=== PATIENT | male | born 1985 | race Caucasian/White ===

== ENCOUNTER 2018-08-18 17:05 | Emergency (ER) | payer OTHER ==
[2018-08-18 17:14] VITALS: BP 144/77; PULSE 61; TEMP 98.1; BMI 37.3
[2018-08-18] MEDS ORDERED: IBUPROFEN 400 MG TABLET (FP) PO ONE ×2 (17:28→17:33)
--- NOTE | 2018-08-18 17:39 | PDOC ---
History of Present Illness - General Chief Complaint: Sore Throat Stated Complaint: SORE THROAT/FEVER Time Seen by Provider: 08/18/18 17:17 History Source: Patient Exam Limitations: No Limitations - History of Present Illness Associated Symptoms: reports: cough. denies: chest pain (sorethroat X 2wks, also cough), fever/chills, headaches, loss of appetite, nausea/vomiting, shortness of breath Past History - Travel Traveled outside of the country in the last 30 days: No Close contact w/someone who was outside of country & ill: No - Past Medical History Allergies/Adverse Reactions: Allergies Allergy/AdvReac Type Severity Reaction Status Date / Time No Known Allergies Allergy Verified 08/18/18 17:13 Home Medications: Ambulatory Orders Benzonatate [Tessalon Pearls -] 100 mg PO TID #21 capsule 08/18/18 Ibuprofen 800 mg PO ACDIN 7 Days #21 tablet 08/18/18 COPD: No - Suicide/Smoking/Psychosocial Hx Smoking History: Never smoked Have you smoked in the past 12 months: No Hx Alcohol Use: No Drug/Substance Use Hx: No Review of Systems - Review of Systems Is the patient limited [place]ian proficient: No Constitutional: No: Chills, Fever HEENTM: Yes: Throat Pain. No: Nose Congestion, Throat Swelling, Mouth Pain, Difficulty Swallowing Respiratory: Yes: Cough, Productive cough. No: Orthopnea, Shortness of Breath, SOB with Exertion, Stridor, Wheezing Cardiac (ROS): No: Chest Pain, Edema *Physical Exam - Vital Signs Last Vital Signs Temp Pulse Resp BP Pulse Ox 98.1 F 61 18 144/77 99 08/18/18 17:09 08/18/18 17:09 08/18/18 17:09 08/18/18 17:09 08/18/18 17:09 - Physical Exam General Appearance: Yes: Nourished HEENT: positive: EOMI, PATRICK, Tonsillar Erythema. negative: Tonsillar Exudate, Nasal Congestion, Rhinorrhea Neck: positive: Supple Respiratory/Chest: positive: Lungs Clear, Normal Breath Sounds Cardiovascular: positive: Regular Rhythm, Regular Rate, S1, S2 Extremity: positive: Normal Capillary Refill Integumentary: positive: Normal Color Neurologic: positive: mobile application developer II-XII NML intact, Fully Oriented, Alert Medical Decision Making - Medical Decision Making 08/18/18 17:38 33 years old male with sore throat 2 weeks, + intermittent cough and sneezing X 1wk.denies fever chills any throat swelling shortness of breath chest pain RS 08/18/18 18:18 Rs neg *DC/Admit/Observation/Transfer Diagnosis at time of Disposition: Viral URI with cough - Discharge Dispostion Disposition: HOME Condition at time of disposition: Stable Decision to Admit order: No - Prescriptions Prescriptions: Benzonatate [Tessalon Pearls -] 100 mg PO TID #21 capsule Ibuprofen 800 mg PO ACDIN 7 Days #21 tablet - Referrals Referrals: Diana Briceño MD [Primary Care Provider] - - Patient Instructions Printed Discharge Instructions: Common Cold Additional Instructions: Your strep test was negative today. The culture will be sent to the lab. If it come out positive you will be contacted for antiboitics Please take motrin for pain, gargle with salt warm water Follow up with your primary care doctor Return to the ER if worsening symptoms occurs. - Post Discharge Activity
== END 2018-08-18 18:27 | disposition home or self-care (01) ==
LOC: JERFT 17:05
DX: J06.9 Acute upper respiratory infection, unspecified (principal); B97.89 Other viral agents as the cause of diseases classified elsewhere
CPT/HCPCS: 87070; 87880; 99281-25

== ENCOUNTER 2020-03-30 23:37 | Emergency (ER) | payer OTHER ==
[2020-03-31 00:02] VITALS: BMI 40.7
[2020-03-31] MEDS ORDERED: IBUPROFEN 600 MG TABLET (FP) PO ONE ×2 (00:05→00:29)
[2020-03-31 01:17] VITALS: BP 122/80; PULSE 90; TEMP 100.3
== END 2020-03-31 01:15 | disposition home or self-care (01) ==
LOC: JER 23:37
DX: U07.1 COVID-19 (principal)
CPT/HCPCS: 99283-25; C9803; U0003

== ENCOUNTER 2020-10-30 15:12 | Emergency (ER) | payer OTHER ==
[2020-10-30 15:23] VITALS: BP 115/73; PULSE 78; TEMP 98.4; BMI 36.1
== END 2020-10-30 16:35 | disposition home or self-care (01) ==
LOC: JER 15:12
DX: R05 Cough (principal); M79.641 Pain in right hand; M79.642 Pain in left hand
CPT/HCPCS: 99283-25

== ENCOUNTER 2024-06-25 03:47 | Emergency (ER) | payer OTHER ==
[2024-06-25 03:51] VITALS: BP 125/86; PULSE 89; RESP 20; TEMP 98; BMI 34.4
[2024-06-25] MEDS ORDERED: TETRACAINE 0.5% OPHTH SOLN 2 ML BOTTLE ONE (04:20)
[2024-06-25] MEDS ORDERED: FLUORESCEIN NA 1 EA STRIP ONE (04:20)
[2024-06-25] MEDS: IBUPROFEN 600 MG TABLET (FP) PO ONE (04:24)
[2024-06-25] MEDS: TETRACAINE 0.5% HCL 0.6ML DROPPER.BOTTLE OU ONE (04:50)
[2024-06-25] MEDS: FLUORESCEIN NA 1 EA STRIP OU ONE (04:50)
[2024-06-25] MEDS ORDERED: ERYTHROMYCIN 0.5% OPHTHALMIC OINTMENT 3.5 GM TUBE ONE (05:27)
== END 2024-06-25 06:31 | disposition home or self-care (01) ==
LOC: JER 03:47
DX: H16.133 Photokeratitis, bilateral (principal); H57.13 Ocular pain, bilateral
CPT/HCPCS: 99283-25

== ENCOUNTER 2025-01-09 19:08 | Emergency (ER) | payer OTHER ==
[2025-01-09 19:24] VITALS: BP 121/79; PULSE 68; RESP 20; TEMP 98.1; BMI 37.7
[2025-01-09] MEDS ORDERED: DIPHTH,PERTUSS(ACELL),TET 0.5 ML DISP.SYRIN IM ONE (20:25)
[2025-01-09] MEDS ORDERED: CEPHALEXIN MONOHYDRATE 500 MG CAPSULE (UD) ONE (20:26)
[2025-01-09] MEDS: DIPHTH,PERTUSS(ACELL),TET 0.5 ML DISP.SYRIN IM ONE (20:27)
[2025-01-09] MEDS: CEPHALEXIN MONOHYDRATE 500 MG CAPSULE (UD) PO ONE (20:27)
== END 2025-01-09 21:28 | disposition home or self-care (01) ==
LOC: JERFT 19:08
PROC: 0HQFXZZ Repair Right Hand Skin, External Approach (ICD-10-PCS; principal; 2025-01-09)
PROC: 3E0234Z Introduction of Serum, Toxoid and Vaccine into Muscle, Percutaneous Approach (ICD-10-PCS; 2025-01-09)
DX: S61.411A Laceration without foreign body of right hand, initial encounter (principal); Z23 Encounter for immunization; W26.8XXA Contact with other sharp object(s), not elsewhere classified, initial encounter; Y99.0 Civilian activity done for income or pay
CPT/HCPCS: 12002-25; 90471; 90715; 99284-25